=== PATIENT | female | born 1935 | race Caucasian/White ===

== ENCOUNTER → 2016-07-23 | Outpatient (CLI) | payer MEDICARE, BC | END | disposition home or self-care (01) | LOC: GMAM 12:06 | PROVIDERS: ATTEND Family Medicine | DX: N39.0 Urinary tract infection, site not specified (principal) ==

== ENCOUNTER → 2016-07-30 | Outpatient (CLI) | payer MEDICARE, BC | END | disposition home or self-care (01) | LOC: GMAM 15:30 | PROVIDERS: ATTEND Family Medicine | DX: N39.0 Urinary tract infection, site not specified (principal) ==

== ENCOUNTER 2016-08-04 10:42 | Inpatient (IN) | payer MEDICARE ==
--- NOTE | 2016-08-04 10:44 | HP ---
SUPERVISING PHYSICIAN: Devendra Esqueda MD CHIEF COMPLAINT: Dysuria. HISTORY OF PRESENT ILLNESS: This is an 81-year-old female patient who was seen in her primary care physician's office, Dr. Esqueda, last week for a urinary tract infection. She was placed on an oral antibiotic at that time and over the weekend, her culture back and was E. coli, but had multi-resistant strains to many antibiotics. She was not feeling any better and I was called by Dr. Esqueda for admission. She was a direct admit from Dr. Esqueda's office. PAST MEDICAL HISTORY: 1. Hypertension. 2. Hyperlipidemia. 3. Type 2 diabetes mellitus. 4. Essential tremors. 5. Diabetic neuropathy. 6. Gastroesophageal reflux disease. 7. History of cerebrovascular accident in 2001. 8. Fibromyalgia. 9. Lumbar disc disease. PAST SURGICAL HISTORY: 1. Cholecystectomy. 2. Tonsillectomy and adenoidectomy. 3. Hemorrhoidectomy. 4. Hysterectomy with bilateral oophorectomy. OUTPATIENT MEDICATIONS: Per the EMR and awaiting verification. ALLERGIES: PENICILLIN, FARXIGA, LIPITOR, ZOCOR. FAMILY HISTORY: SOCIAL HISTORY: She lives in [place]. She is . She has three children. She denies any tobacco or illicit drug use. She drinks an alcoholic beverage 2 to 3 times per year. REVIEW OF SYSTEMS: GENERAL: Positive for fatigue. Negative for fever or weight changes. HEENT: Denies sinus symptoms, ear pain, vision changes or sore throat. RESPIRATORY: Denies wheezing, coughing or shortness of breath. CARDIAC: Denies chest pain, palpitations or tachycardia. GASTROINTESTINAL: Positive for mild suprapubic abdominal pain, but negative for nausea, vomiting, diarrhea, constipation. GENITOURINARY: Positive for dysuria. Negative for hematuria or polyuria. NEUROLOGIC: Positive for peripheral neuropathy. Negative fro seizures, headache or dizziness. PHYSICAL EXAMINATION: GENERAL: This is an 81-year-old, female patient who is lying in her hospital bed. HEENT: Normocephalic, atraumatic. Pupils are equal and reactive. Oropharynx is clear. NECK: Supple without mass. No jugular venous distention. RESPIRATORY: Clear to auscultation bilaterally. CHEST: There is equal rise and fall of the chest with inspiration and expiration. CARDIOVASCULAR: Regular rate and rhythm. ABDOMEN: Soft, nondistended, nontender. Bowel sounds are positive. There is no flank pain. EXTREMITIES: No cyanosis, clubbing or edema. NEUROLOGIC: Awake, alert and oriented times three. LABORATORY: Labs are pending at this time. ASSESSMENT: 1. Urinary tract infection, failed outpatient therapy with multidrug resistant Escherichia coli. 2. Diabetes mellitus, type 2. 3. Gastroesophageal reflux disease. 4. Hypertension. 5. Essential tremors. 6. History of cerebrovascular accident. 7. Diabetic neuropathy. PLAN: We will admit the patient to the hospital. Labs are pending at this time. I will also draw blood cultures as well as repeat labs in the morning. I will start her on Merrem. Per her previous urine culture, the E. coli is sensitive to Merrem. We will start her on a proton pump inhibitor for ulcer prophylaxis and Lovenox for DVT prophylaxis. I will also start her on sliding scale insulin. We will restart her home medications. I will also increase her Neurontin as that may be helpful to control her diabetic neuropathy symptoms. Otherwise, we will continue to monitor the patient closely and follow closely as needed. Dr. Esqueda is the collaborating physician and available for consultation. #[id number] [facility]ENTER[facility]arp[facility]
[2016-08-04] MEDS ORDERED: ONDANSETRON INJ 4 MG/2 ML VIAL IV PRN (11:42)
[2016-08-04] MEDS ORDERED: IV SET AND CAP CHANGE INJ INJ SCH (12:00)
[2016-08-04] MEDS ORDERED: PANTOPRAZOLE SODIUM IV 40 MG VIAL IV SCH (12:00)
[2016-08-04] MEDS ORDERED: MEROPENEM 1 GM VIAL IVPB ONE ×2 (12:20→20:30)
[2016-08-04] MEDS ORDERED: SODIUM CHL 0.9% 50ML MIN-BAG+ 50 ML IVPB ONE ×2 (12:20→20:29)
[2016-08-04] MEDS ORDERED: GLUCAGON INJ 1 MG VIAL SUBCU PRN (12:29)
[2016-08-04] MEDS ORDERED: DEXTROSE 50% 25 GM/50 ML SYG IV PRN (12:29)
--- NOTE | 2016-08-04 12:32 | PCM.CORE ---
Physician DVT/VTE - Prophylaxis Currently: Patient already on anticoagulation therapy - 5 or more Very High Risk Treatments: Early Ambulation *, Sequential Compression Device
[2016-08-04] MEDS ORDERED: ENOXAPARIN SODIUM 40 MG/0.4 ML SYG SUBCU SCH (13:00)
[2016-08-04] MEDS: SODIUM CHLORIDE 0.9% (FLUSH) 10 ML SYG IV PRN ×2 (13:09→20:37)
[2016-08-04] MEDS: MEROPENEM 1 GM in SODIUM CHL 0.9% 50ML MIN-BAG+ 50 ML IVPB SCH ×2 (13:09→20:31)
[2016-08-04] MEDS: INSULIN LISPRO 100 UNITS/ML PEN SUBCU SCH ×2 (16:45→21:03)
[2016-08-04] MEDS: NYSTATIN POWDER 15GM BTTL TOP SCH ×2 (16:46→20:49)
[2016-08-04] MEDS: BIFIDOBACTERIUM INFANTIS 4 MG CAP PO SCH (20:32)
[2016-08-04] MEDS: FLUCONAZOLE 100 MG TAB PO SCH (20:32)
[2016-08-04] MEDS: PRIMIDONE 50 MG TAB PO SCH (20:34)
[2016-08-04] MEDS: GABAPENTIN 100 MG CAP PO SCH (20:34)
[2016-08-05] MEDS: ACETAMINOPHEN 325 MG TAB PO PRN (02:26)
[2016-08-05] MEDS ORDERED: SODIUM CHL 0.9% 50ML MIN-BAG+ 50 ML IVPB ONE ×3 (03:51→20:30)
[2016-08-05] MEDS ORDERED: MEROPENEM 1 GM VIAL IVPB ONE ×3 (03:51→20:31)
[2016-08-05] MEDS: SODIUM CHLORIDE 0.9% (FLUSH) 10 ML SYG IV PRN (03:55)
[2016-08-05] MEDS: MEROPENEM 1 GM in SODIUM CHL 0.9% 50ML MIN-BAG+ 50 ML IVPB SCH ×3 (03:55→21:34)
[2016-08-05] MEDS ORDERED: ENOXAPARIN SODIUM 40 MG/0.4 ML SYG SUBCU ONE (07:26)
[2016-08-05] MEDS: INSULIN LISPRO 100 UNITS/ML PEN SUBCU SCH ×4 (07:29→21:35)
[2016-08-05] MEDS: CELECOXIB 100 MG CAP PO SCH (07:41)
[2016-08-05] MEDS: metFORMIN HCL 500 MG TAB PO SCH ×2 (07:42→16:50)
[2016-08-05] MEDS: BIFIDOBACTERIUM INFANTIS 4 MG CAP PO SCH ×2 (08:36→21:34)
[2016-08-05] MEDS: ENOXAPARIN SODIUM 40 MG/0.4 ML SYG SUBCU SCH (08:36)
[2016-08-05] MEDS: PRIMIDONE 50 MG TAB PO SCH ×2 (08:36→21:35)
[2016-08-05] MEDS: FLUCONAZOLE 100 MG TAB PO SCH (08:36)
[2016-08-05] MEDS: NYSTATIN POWDER 15GM BTTL TOP SCH ×4 (08:37→21:43)
[2016-08-05] MEDS: METOPROLOL SUCCINATE XL 50 MG TAB PO SCH (08:38)
[2016-08-05] MEDS: PANTOPRAZOLE SODIUM TAB 40 MG PO SCH (11:42)
[2016-08-05] MEDS: GABAPENTIN 100 MG CAP PO SCH (21:34)
[2016-08-06] MEDS ORDERED: MEROPENEM 1 GM VIAL IVPB ONE ×3 (03:27→18:10)
[2016-08-06] MEDS ORDERED: SODIUM CHL 0.9% 50ML MIN-BAG+ 50 ML IVPB ONE ×3 (03:27→18:09)
[2016-08-06] MEDS: SODIUM CHLORIDE 0.9% (FLUSH) 10 ML SYG IV PRN ×2 (03:30→22:55)
[2016-08-06] MEDS: MEROPENEM 1 GM in SODIUM CHL 0.9% 50ML MIN-BAG+ 50 ML IVPB SCH ×3 (03:30→18:27)
[2016-08-06] MEDS: PANTOPRAZOLE SODIUM TAB 40 MG PO SCH (06:12)
--- NOTE | 2016-08-06 07:40 | PN ---
SUPERVISING PHYSICIAN: PACO TORRES MD DATE: 08/05/16 SUBJECTIVE: The patient is sitting up in her hospital bed. She is watching television. She has no complaints of shortness of breath, nausea, vomiting or diarrhea or constipation. She did say she still has quite a bit of itching along her abdomen where she has the yeast infection but the medicine she has received is helping some. OBJECTIVE: VITAL SIGNS: She is afebrile. Heart rate 65, blood pressure 136/83, respirations 20, 02 saturation is 93% on room air. CHEST: Clear to auscultation bilaterally. CARDIAC: Regular rate and rhythm. ABDOMEN is soft, non-tender, nondisplaced. Bowel sounds are positive. EXTREMITIES: No cyanosis, clubbing, or edema. SKIN: She has a candidiasis rash along her lower abdomen as well as under her abdominal pannus. NEUROLOGICAL: She is awake, alert, and oriented x3. LABORATORY: There are no labs or films to reports except her glucose has run between 154 to 294. All other labs and films have been reviewed via the EMR. ASSESSMENT: 1. Urinary tract infection, failed outpatient therapy with multidrug resistant Escherichia coli. 2. Candidiasis infection of the lower abdomen. 3. Diabetes mellitus, type 2. 4. Gastroesophageal reflux disease. 5. Hypertension. 6. Essential tremors. 7. History of cerebrovascular accident. 8. Diabetic neuropathy. PLAN: We will continue present supportive care. We may need to have a little bit tighter control on her glucose, so tomorrow if her blood sugars are still elevated, I may change her sliding scale. She has been given Diflucan for her yeast infection as well as Nystatin powder and if that does not improve, I may have to change that to IV, will do labs in the morning. Will also call Dr. Calvert to see how many days it would be beneficial for her to be on the IV antibiotics as well as to get a followup appointment with her at that time due to the multiresistance of this urinary tract infection. We will monitor the patient closely and follow as needed. Dr. Torres is the collaborating physician and available for consultation. #[id number] [facility]
[2016-08-06] MEDS: INSULIN LISPRO 100 UNITS/ML PEN SUBCU SCH ×4 (08:49→20:46)
[2016-08-06] MEDS: PRIMIDONE 50 MG TAB PO SCH ×2 (08:50→20:37)
[2016-08-06] MEDS: FLUCONAZOLE 100 MG TAB PO SCH (08:50)
[2016-08-06] MEDS: CELECOXIB 100 MG CAP PO SCH (08:50)
[2016-08-06] MEDS: METOPROLOL SUCCINATE XL 50 MG TAB PO SCH (08:50)
[2016-08-06] MEDS: metFORMIN HCL 500 MG TAB PO SCH ×2 (08:50→17:10)
[2016-08-06] MEDS: BIFIDOBACTERIUM INFANTIS 4 MG CAP PO SCH ×2 (08:51→20:36)
[2016-08-06] MEDS: NYSTATIN POWDER 15GM BTTL TOP SCH ×4 (08:51→20:37)
[2016-08-06] MEDS: ENOXAPARIN SODIUM 40 MG/0.4 ML SYG SUBCU SCH (09:02)
[2016-08-06] MEDS: ACETAMINOPHEN 325 MG TAB PO PRN (15:56)
[2016-08-06] MEDS: GABAPENTIN 100 MG CAP PO SCH (20:36)
[2016-08-06] MEDS ORDERED: diphenhydrAMINE HCL 50 MG/ML VIAL IV PRN (22:47)
[2016-08-07] MEDS ORDERED: SODIUM CHL 0.9% 50ML MIN-BAG+ 50 ML IVPB ONE ×2 (01:11→09:42)
[2016-08-07] MEDS ORDERED: MEROPENEM 1 GM VIAL IVPB ONE ×2 (01:12→09:42)
[2016-08-07] MEDS: MEROPENEM 1 GM in SODIUM CHL 0.9% 50ML MIN-BAG+ 50 ML IVPB SCH ×2 (02:07→09:48)
[2016-08-07] MEDS: SODIUM CHLORIDE 0.9% (FLUSH) 10 ML SYG IV PRN (02:08)
[2016-08-07] MEDS: PANTOPRAZOLE SODIUM TAB 40 MG PO SCH (06:09)
[2016-08-07 07:41] VITALS: BP 125/80; TEMP 97.2; O2SAT 95
[2016-08-07] MEDS: INSULIN LISPRO 100 UNITS/ML PEN SUBCU SCH (07:58)
--- NOTE | 2016-08-07 08:45 | PN ---
SUPERVISING PHYSICIAN: Boni Mcdonnell MD DATE: 08/06/16 SUBJECTIVE: The patient is sitting up in her hospital bed. She is watching television. She denies any chest pain, shortness of breath, nausea, vomiting or diarrhea. OBJECTIVE: VITAL SIGNS: She is afebrile. Heart rate 65, blood pressure 162/105, respiratory rate is 18. 02 saturation is 91% on room air. CHEST: Clear to auscultation bilaterally. CARDIAC: Regular rate and rhythm. ABDOMEN is soft, non-tender, nondisplaced. Bowel sounds are positive. She does have a candidiasis rash on her abdomen, it is improved since yesterday. NEUROLOGICAL: She is awake, alert, and oriented x3. LABORATORY: WBCs are 4.6. Her blood sugars have run from 134 to 209. Her chemistries are otherwise basically within normal limits. Her preliminary blood cultures show no growth after 48 hours. All other labs and films have been reviewed via the EMR. ASSESSMENT: 1. Urinary tract infection, failed outpatient therapy with multidrug resistant Escherichia coli. 2. Candidiasis infection of the lower abdomen. 3. Diabetes mellitus, type 2. 4. Gastroesophageal reflux disease. 5. Hypertension. 6. Essential tremors. 7. History of cerebrovascular accident. 8. Diabetic neuropathy. PLAN: We will continue present supportive care. I have adjusted her Merrem dosing slightly so she will be able to be discharged by 11 o'clock tomorrow. I spoke with Dr. Calvert today and she would like her to get her Merrem dosing through tomorrow at noon. I will send her to [facility] for a PICC line placement and she will return to the hospital on Wednesday morning to start her InVance treatment, one gram daily x14 days. She is to see Dr. Calvert as an outpatient before her PICC line is pulled and we will try to get an appointment within the next 2 weeks. Otherwise, we will discharge her tomorrow. She will do InVance as an outpatient therapy at the hospital and we will continue to monitor closely and followup as needed. #[id number] [facility]
[2016-08-07] MEDS: metFORMIN HCL 500 MG TAB PO SCH (09:45)
[2016-08-07] MEDS: FLUCONAZOLE 100 MG TAB PO SCH (09:45)
[2016-08-07] MEDS: CELECOXIB 100 MG CAP PO SCH (09:46)
[2016-08-07] MEDS: BIFIDOBACTERIUM INFANTIS 4 MG CAP PO SCH (09:48)
[2016-08-07] MEDS: PRIMIDONE 50 MG TAB PO SCH (09:48)
[2016-08-07] MEDS: ENOXAPARIN SODIUM 40 MG/0.4 ML SYG SUBCU SCH (10:42)
[2016-08-07] MEDS: NYSTATIN POWDER 15GM BTTL TOP SCH (10:43)
--- NOTE | 2016-08-08 14:14 | DS ---
SUPERVISING PHYSICIAN: Boni Mcdonnell M.D. DISCHARGE DIAGNOSIS: 1. Urinary tract infection failed outpatient therapy abdomen multidrug resistant Escherichia coli. 2. Candidiasis infection of the lower abdomen. 3. Diabetes mellitus type 2. 4. Gastroesophageal reflux disease. 5. Hypertension. 6. Essential tremors. 7. History of cerebrovascular accident. 8. Diabetic neuropathy. HISTORY OF PRESENT ILLNESS: This is an 81 year-old female patient who was seen several days before her date of admission in her primary care physician's office , Dr. Esqueda. She was put on oral antibiotics. Urinalysis and cultures were done. She was not feeling any better and after her cultures came back, sensitivities showed that she had multidrug resistant Escherichia coli. She was admitted from Dr. Esqueda's office for a urinary tract infection failed outpatient therapy. HOSPITAL COURSE: The patient was admitted to the hospital and was started on IV Merrem antibiotics. She was also given a small amount of fluids. Her home medications were restarted and her condition improved over the next several days. She also had a Candidiasis rash on her abdomen and was given Diflucan. I consulted Dr. Vargas in regards to the multidrug resistant strain of Escherichia coli that was shown in her urine culture. She recommended that the patient finish 3 full days of Merrem antibiotics and then be discharged, obtain a PICC line and she could be started on Invanz antibiotics daily for 14 days. Today, she has completed her 3 days of Merrem IV antibiotics and she will be discharged. DISCHARGE PLAN: The patient will be discharged home in good condition. She has an appointment at [facility] for PICC line placement. She will begin her Invanz 1 gram daily per Infectious Disease physician, Dr. Vargas's recommendations. Dr. Vargas wants to see the patient prior to pulling her PICC line so she is to make an appointment with her at the end of her treatment and to be evaluated for her urinary tract infection complications. She will have a followup appointment with Dr. Esqueda on 08/14/16 at 10:30 AM. She will be discharged in good condition. She is to resume her diabetic diet. She is to increase her activity as tolerated and to resume her home medications. She is to resume her previous medications that include a probiotic, Diflucan, Nystatin and Invanz. DISCHARGE MEDICATIONS: 1. Primidone. 2. Metformin. 3. Celebrex. 4. Naproxen. 5. Metoprolol succinate. 6. Gabapentin. 7. Levemir insulin. 8. Align. 9. Diflucan. 10. Nystatin powder. 11. Invanz. Dr. Mcdonnell is the collaborating physician and available for consultation. [facility][id number] [facility]
== END 2016-08-07 10:40 | disposition home or self-care (01) | DRG 690 ==
LOC: MS 10:42
PROVIDERS: ADMIT Family Medicine; ATTEND Nurse Practitioner Acute Care
DX: N39.0 Urinary tract infection, site not specified (principal); B96.20 Unspecified Escherichia coli [E. coli] as the cause of diseases classified elsewhere; B37.2 Candidiasis of skin and nail; K21.9 Gastro-esophageal reflux disease without esophagitis; I10 Essential (primary) hypertension; E11.40 Type 2 diabetes mellitus with diabetic neuropathy, unspecified; G25.0 Essential tremor; E78.5 Hyperlipidemia, unspecified; M79.7 Fibromyalgia; Z88.0 Allergy status to penicillin; Z16.24 Resistance to multiple antibiotics; Z86.73 Personal history of transient ischemic attack (TIA), and cerebral infarction without residual deficits; Z88.8 Allergy status to other drugs, medicaments and biological substances

== ENCOUNTER → 2016-08-25 | Outpatient (CLI) | payer MEDICARE ==
--- NOTE | 2016-08-25 10:01 | CT ---
EXAM DESCRIPTION: CT ABDOMEN AND PELVIS WITH CONTRAST CLINICAL HISTORY: ABD PAIN, R/O ABSCESS, UTI COMPARISON: None Available. TECHNIQUE: CT of the abdomen and pelvis are performed during IV bolus administration of nonionic contrast. This exam was performed according to our departmental dose-optimization program, which includes automated exposure control, adjustment of the mA and/or kV according to patient size and/or use of iterative reconstruction technique. FINDINGS: The lung bases are clear without infiltrate or effusion. No free abdominal air is seen. A small hiatal hernia is noted. The liver is normal in size and shape with multiple discrete circumscribed low-density cystic structures scattered in the right and left lobes consistent with benign cysts. The gallbladder is surgically absent without ductal dilation. The spleen is borderline enlarged with at least 2 benign cyst and a single benign dense calcification noted in the central spleen the pancreas is fatty infiltrated without focal mass. The adrenal glands are normal. The kidneys normally enhance without cyst or mass or obstruction or evident stone disease. The retroperitoneum demonstrates mild aortic calcification without aneurysm with no evidence of adenopathy or vena caval abnormality. The anterior abdominal wall is abnormal in the left lower quadrant with marked atrophy of the rectus muscles and a widemouth moderately large left anterior wall fat-containing hernia that extends from near the inguinal region in a cephalad fashion but is not felt to represent an inguinal hernia. Subcutaneous inflammation deep to the skin in the left lower quadrant is noted. A superficial cellulitis anterior to this hernia would be a consideration. This could also represent a left lower quadrant injection site. The stomach and small bowel are unremarkable. Extensive diverticulosis of the colon, most prominent involving the sigmoid colon is present. No evidence of acute diverticulitis or phlegmon or abscess or perforation is seen. The appendix is not clearly identified but no right lower quadrant inflammation is noted. Multilevel advanced degenerative disc disease and vacuum phenomenon at multiple levels is present without compression deformity or malalignment of the spine. The uterus is surgically absent and no abnormal pelvic or adnexal masses or fluid collections noted. IMPRESSION: 1. Benign-appearing cystic disease of the liver and spleen with mild splenomegaly and solitary granulomatous calcification centrally in the spleen. 2. Extensive colonic diverticulosis without evidence of acute diverticulitis or abscess or phlegmon. 3. Large widemouth left lower quadrant ventral hernia containing only fat. 4. Subcutaneous inflammation in the left flank region just below the level of the umbilicus suggesting a cutaneous cellulitis. 5. Surgical absence of the gallbladder and uterus. Electronically signed by: Devnedra Saavedra MD 08/25/2016 10:00 AM CDT
== END | disposition home or self-care (01) ==
LOC: CT 07:47
PROVIDERS: ATTEND Internal Medicine Infectious Disease
DX: R10.9 Unspecified abdominal pain (principal)

== ENCOUNTER 2019-10-10 20:54 | Emergency (ER) | payer MEDICARE ==
[2019-10-10 21:27] VITALS: TEMP 97.3; O2SAT 96
--- NOTE | 2019-10-10 22:01 | RAD ---
EXAM DESCRIPTION: Bilateral Ribs CLINICAL HISTORY: FELL ON ANTERIOR RIBS; PAIN W/ DEEP INSPIRATION. COMPARISON: None FINDINGS: Two x-ray views of the right and left ribs, and additional x-ray view of the lower ribs were submitted. There is no pneumothorax. There is no discrete displaced acute rib fracture. There is a calcified pulmonary nodule within the left lung. There is scoliosis of the lumbar spine. There are degenerative changes of the lumbar spine. IMPRESSION: No acute abnormalities.. Electronically signed by: Milton Dyer MD 10/10/2019 9:59 PM CDT
[2019-10-11 00:05] VITALS: BP 142/68
--- NOTE | 2019-10-11 00:14 | ED.PDOC ---
History of Present Illness - General Chief Complaint: Trauma Stated Complaint: fell on wednesday, hit mid chest area Time Seen by Provider: 10/10/19 21:10 Source: patient, family Exam Limitations: no limitations - History of Present Illness Initial Comments: FELL 2 D AGO. TRIPPED ON TOWEL ON FLOOR, CHEST HIT COUNTER. PAIN WITH DEEP INSPIRATION SINCE THEN. NO HEAD COLLISION. NO LOC. Severity: moderate Improving Factors: immobilization Worsening Factors: movement Associated Symptoms: denies symptoms Allergies/Adverse Reactions: Allergies Penicillins Allergy (Unverified 05/27/12 14:09) Home Medications: Ambulatory Orders Celecoxib 200 mg PO DAILY 08/04/16 Gabapentin [Neurontin] 200 mg PO BEDTIME 08/04/16 Insulin Detemir [Levemir Pen] 6 unit SUBCU BEDTIME 08/04/16 Metformin HCl [Metformin Hydrochloride] 1,000 mg PO BIDFD 08/04/16 Metoprolol Succinate [Metoprolol Succinate ER] 50 mg PO DAILY 08/04/16 Naproxen Sodium [Aleve] 440 mg PO BID 08/04/16 Primidone 50 mg PO BID 08/04/16 Bifidobacterium Infantis [Align] 4 mg PO BID 08/07/16 Ertapenem [INVanz] 1 gm IM DAILY #14 vial 08/07/16 Fluconazole [Diflucan Tab] 100 mg PO DAILY #10 08/07/16 Nystatin Powder 1 applic TOP QID #1 bottle 08/07/16 Review of Systems - Review of Systems Constitutional: States: no symptoms reported EENTM: States: no symptoms reported Respiratory: Denies: cough, short of breath Cardiology: Denies: chest pain, palpitations Gastrointestinal/Abdominal: States: no symptoms reported Genitourinary: States: no symptoms reported Musculoskeletal: Denies: back pain, joint pain, neck pain Skin: States: no symptoms reported Neurological: States: no symptoms reported Endocrine: States: no symptoms reported Hematologic/Lymphatic: States: no symptoms reported All other Systems: Reviewed and Negative Past Medical History (General) - Patient Medical History Hx Seizures: No Hx Stroke: Yes - TIA Hx Dementia: No Hx Asthma: No Hx of COPD: No Hx Cardiac Disorders: No Hx Congestive Heart Failure: No Hx Pacemaker: No Hx Hypertension: No Hx Thyroid Disease: No Hx Diabetes: Yes - diet controlled Hx Gastroesophageal Reflux: No Hx Renal Disease: No Hx Cancer: No Hx of HIV: No Hx Hepatitis C: No Hx MRSA: No Surgical History: Hysterectomy - Vaccination History Hx Tetanus, Diphtheria Vaccination: No Hx Influenza Vaccination: No Hx Pneumococcal Vaccination: No Immunizations Up to Date: No Immunizations Comment: refuses ALL vaccinations - Social History Hx Tobacco Use: No Hx Chewing Tobacco Use: No Hx Alcohol Use: No Hx Substance Use: No Hx Substance Use Treatment: No Hx Depression: No Feels Threatened In Home Enviroment: No Feels Threatened In a Relationship: No Hx Physical Abuse: No Hx Emotional Abuse: No Hx Suspected Abuse: No - Activities of Daily Living Longterm/Assisted Living (if applicable):: [facility] (if applicable):: None - Female History Patient is a Female of Child Bearing Age (10 -59 yrs old): No Family Medical History - Family History Mother Living Status: Physical Exam - Physical Exam General Appearance: Alert, No apparent distress Eye Exam: bilateral normal Ears, Nose, Throat: hearing grossly normal, normal ENT inspection Neck: non-tender, full range of motion, supple Respiratory: lungs clear, normal breath sounds, no respiratory distress, no accessory muscle use, other - ANTERIOR RIBS TTP. Cardiovascular/Chest: regular rate, rhythm, no murmur Peripheral Pulses: radial,right: 2+, radial,left: 2+ Gastrointestinal/Abdominal: normal bowel sounds, non tender, soft, no organomegaly Back Exam: no CVA tenderness, no vertebral tenderness Extremity: normal range of motion, non-tender, normal inspection Neurologic: no motor/sensory deficits, normal mood/affect Skin Exam: warm/dry, other - NO LAC. Lymphatic: no adenopathy Progress - Results/Orders Results/Orders: Rib xray neg for frx. SAFE FOR DC TO HOME WITH SON. Departure - Departure Clinical Impression: Bilateral contusion of ribs, Rib pain Disposition: Discharge to Home or Self Care Condition: Good Departure Forms: ED Discharge - Pt. Copy, Patient Portal Self Enrollment Instructions: DI for Trauma, Bruised Rib (DC) Diet: resume usual diet Activity: increase activity as tolerated Referrals: Devendra Esqueda MD [Primary Care Provider] - 1-2 Weeks Home Medications: Ambulatory Orders Celecoxib 200 mg PO DAILY 08/04/16 Gabapentin [Neurontin] 200 mg PO BEDTIME 08/04/16 Insulin Detemir [Levemir Pen] 6 unit SUBCU BEDTIME 08/04/16 Metformin HCl [Metformin Hydrochloride] 1,000 mg PO BIDFD 08/04/16 Metoprolol Succinate [Metoprolol Succinate ER] 50 mg PO DAILY 08/04/16 Naproxen Sodium [Aleve] 440 mg PO BID 08/04/16 Primidone 50 mg PO BID 08/04/16 Bifidobacterium Infantis [Align] 4 mg PO BID 08/07/16 Ertapenem [INVanz] 1 gm IM DAILY #14 vial 08/07/16 Fluconazole [Diflucan Tab] 100 mg PO DAILY #10 08/07/16 Nystatin Powder 1 applic TOP QID #1 bottle 08/07/16 Additional Instructions: Please take tylenol or ibuprofen as needed for the rib pain.
== END 2019-10-11 00:19 | disposition home or self-care (01) ==
LOC: ER 20:54
DX: S20.211A Contusion of right front wall of thorax, initial encounter (principal); S20.212A Contusion of left front wall of thorax, initial encounter; R07.81 Pleurodynia; E11.9 Type 2 diabetes mellitus without complications; Z86.73 Personal history of transient ischemic attack (TIA), and cerebral infarction without residual deficits; W18.00XA Striking against unspecified object with subsequent fall, initial encounter; Y92.9 Unspecified place or not applicable